=== PATIENT | male | born 1960 | race Two or more races ===

== ENCOUNTER 2018-03-18 08:37 | Inpatient (IN) | payer OTHER ==
[~2018-03-18] VITALS: Ht 162.6 cm; Wt 86.2 kg
[2018-03-18 11:15] VITALS: BP 126/74
--- NOTE | 2018-03-18 11:15 | NUR ---
ms rn admitted a 49 year old patient, awake,alert,oriented x4,came in from [facility] w/ cc of bleeding from rectum x 2days, dx of syncope, denies pain and bleeding at this time, will monitor patient and paged doctor shaye.
[2018-03-18] MEDS ORDERED: TAMS-12 PO (11:39)
[2018-03-18] MEDS ORDERED: OXYB5TAB PO (11:39)
--- NOTE | 2018-03-18 12:19 | NUR ---
ms glazier metal furniture done,no distress noted.
[2018-03-18] MEDS ORDERED: ONDANSETRON HCL/PF 4 MG/2 ML VIAL IVP PRN (13:00)
[2018-03-18] MEDS ORDERED: HYDROCODONE/APAP 5/325MG 1 EACH TABLET PO PRN (13:00)
[2018-03-18] MEDS ORDERED: ZOLPIDEM TARTRATE 5 MG TABLET PO PRN (13:00)
[2018-03-18] MEDS ORDERED: MAGNESIUM HYDROXIDE 30 ML UDC PO PRN (13:00)
[2018-03-18] MEDS ORDERED: MAG HYDROX/AL HYDROX/SIMETH 30 ML UDC PO PRN (13:00)
[2018-03-18] MEDS ORDERED: ACETAMINOPHEN 325 MG TABLET PO PRN (13:00)
[2018-03-18] MEDS ORDERED: Z GUARD REMEDY 2 OZ OINT TP PRN (13:00)
[2018-03-18] MEDS: IV D5/0.45 NACL 1,000 ML IV PRN (13:29)
[2018-03-18] MEDS: PANTOPRAZOLE 40 MG VIAL IV SCH ×2 (13:30→20:57)
[2018-03-18 14:24] LABS: BASOPHILS % (AUTO) 0.5 % (0.0-2.0); EOSINOPHILS % (AUTO) 2.1 % (0.0-6.0); HEMATOCRIT 33 % (39-51); HEMOGLOBIN 11.2 g/dL (13.5-17.5); LYMPHOCYTES # (AUTO) 1.5 /CMM (0.8-4.8); LYMPHOCYTES % (AUTO) 27.3 % (20.0-44.0); MEAN CORPUSCULAR HGB CONC 34 g/dl (31.0-36.0); MEAN CORPUSCULAR VOLUME 90 fL (80-96); MONOCYTES # (AUTO) 0.4 /CMM (0.1-1.30); NEUTROPHILS # (AUTO) 3.5 /CMM (1.8-8.9); NEUTROPHILS % (AUTO) 63.1 % (43.0-81.0); PLATELET COUNT (AUTO) 140 /CMM (150-450); RDW COEFFICIENT OF VARIATION 14.7 (11.5-15.0); RED BLOOD CELL COUNT(AUTO) 3.65 MIL/uL (4.5-6.0); WHITE BLOOD COUNT (AUTO) 5.5 K/uL (4.3-11.0)
[2018-03-18 14:46] LABS: CALCIUM, SERUM 7.7 mg/dL (8.5-10.1); CREATININE 0.8 mg/dL (0.6-1.3); POTASSIUM 3.8 mmol/L (3.5-5.1)
[2018-03-18] MEDS ORDERED: POLYVINYL ALCOHOL 15 ML BOTTLE EACHEYE PRN (15:00)
--- NOTE | 2018-03-18 16:00 | NUR ---
ms rn was seen by dr. shaye gu/ orders made and carried out.
[2018-03-18 17:00] VITALS: BP 118/78
[2018-03-18] MEDS: OXYBUTYNIN CHLORIDE ER 5 MG TAB PO SCH (17:53)
[2018-03-18] MEDS: TAMSULOSIN 0.4 MG CAP.SR.24H PO SCH (17:54)
--- NOTE | 2018-03-18 19:30 | NUR ---
WIRELESS SALES EXPERT OPENING NOTES: PATIENT IN BED, AO, ON ROOM AIR, BREATHING EVEN AND UNLABORED. APPEARS CALM AND IN NO DISTRESS. ON TELE MONITORING: SINUS RHYTHM AT RATE OF 60S. DENIES PAIN. PIV OVER RAC G20 INTACT AND PATENT, INFUSING WELL WITH IVF OF D51/2 NS RUNNING AT 75 ML/HR. PROVIDED FOR COMFORT AND SAFETY. BED IN LOWEST AND LOCKED POSITION, SIDERAILS UP X 2, CALL LIGHT WITHIN REACH. WILL CONT TO MONITOR.
[2018-03-18 20:00] VITALS: BP 123/81
[2018-03-19] VITALS (12 sets, daily range): BP systolic 111–133; BP diastolic 69–84
[2018-03-19] MEDS: IV D5/0.45 NACL 1,000 ML IV PRN (05:35)
--- NOTE | 2018-03-19 06:52 | NUR ---
RUBY ON RAILS WEB DEVELOPER CLOSING NOTES: PATIENT IN BED, AOX4, ON ROOM AIR, BREATHING EVEN AND UNLABORED. ON TELE MONITORING: SINUS RHYTHM RATE OF 70S. PIV OVER RAC G 20 INTACT AND INFUSING WELL WITH D5 1/2 NS RUNNING AT 75 ML /HR. PROVIDED FOR COMFORT AND SAFETY. BED IN LOWEST AND LOCKED POSITION, SIDERAILS UP X 2, CALL LIGHT WITHIN REACH. WILL ENDORSE TO AM RN FOR LINDA.
[2018-03-19 06:57] LABS: BASOPHILS % (AUTO) 0.7 % (0.0-2.0); EOSINOPHILS % (AUTO) 4.5 % (0.0-6.0); HEMATOCRIT 30 % (39-51); HEMOGLOBIN 10.6 g/dL (13.5-17.5); LYMPHOCYTES # (AUTO) 1.4 /CMM (0.8-4.8); LYMPHOCYTES % (AUTO) 33.1 % (20.0-44.0); MEAN CORPUSCULAR HGB CONC 35 g/dl (31.0-36.0); MEAN CORPUSCULAR VOLUME 89 fL (80-96); MONOCYTES # (AUTO) 0.3 /CMM (0.1-1.30); MONOCYTES % (AUTO) 8.1 % (2.0-12.0); NEUTROPHILS # (AUTO) 2.3 /CMM (1.8-8.9); NEUTROPHILS % (AUTO) 53.6 % (43.0-81.0); PLATELET COUNT (AUTO) 127 /CMM (150-450); RDW COEFFICIENT OF VARIATION 14.5 (11.5-15.0); WHITE BLOOD COUNT (AUTO) 4.3 K/uL (4.3-11.0)
--- NOTE | 2018-03-19 07:00 | NUR ---
INSURANCE BUSINESS ANALYST INITIAL NOTES: -Received patient on bed, sleeping but easily arousable. Breathing regular and unlabored. Alert, oriented x 4. Peripheral IV on Right AC with D5 1/2NS infusing at 75mL/hr. No complaints of discomfort as of this time. Bed in low, locked position. Call alvarez within patient's reach. Patient in stable condition as endorsed by the film processing shift supervisor RN.
[2018-03-19 07:14] LABS: CALCIUM, SERUM 7.7 mg/dL (8.5-10.1); CREATININE 0.9 mg/dL (0.6-1.3); MAGNESIUM 1.8 mg/dL (1.8-2.4); PHOSPHORUS 2.7 mg/dL (2.5-4.9); POTASSIUM 3.5 mmol/L (3.5-5.1)
--- NOTE | 2018-03-19 08:00 | NUR ---
JEWEL BEARING TURNER NOTES PATIENT TRANSFERRED TO [facility]. Addendum: 03/19/18 at 1707 by BEATRIZ DOBBINS RN ERROR IN CHARTING FOR DIFFERENT PATIENT.
[2018-03-19] MEDS: PANTOPRAZOLE 40 MG VIAL IV SCH ×2 (08:47→21:08)
[2018-03-19 10:24] LABS: ALBUMIN 2.8 g/dL (3.4-5.0); BILIRUBIN,DIRECT 0.1 mg/dL (0.0-0.2); BILIRUBIN,TOTAL 0.6 mg/dL (0.2-1.0); TOTAL PROTEIN, SERUM 5.6 g/dL (6.4-8.2)
[2018-03-19 10:36] LABS: INR 0.96 (0.87-1.13)
--- NOTE | 2018-03-19 11:30 | NUR ---
MS MONDRAGON NOTES PATIENT S/P JENNISCAN AWAITING FOR RESULTS IF NEGATIVE. PATIENT TO BE DISCHARGED HOME. AWAITING FOR RESULTS. Addendum: 03/19/18 at 1707 by BEATRIZ DOBBINS RN ERROR IN CHARTING FOR DIFFERENT PATIENT.
--- NOTE | 2018-03-19 15:10 | NUR ---
MS RN NOTES PATIENT RETURNED FROM OR S/P EGD IN STABLE CONDITION. PATIENT ALERT, ORIENTED X4. VS WNL. WILL CONTINUE TO MONITOR CLOSELY.
--- NOTE | 2018-03-19 16:20 | NUR ---
MS RN NOTES PATIENT DISCHARGED HOME IN STABLE CONDITION. NO SOB OR ACUTE DISTRESS NOTED. PATIENT ALERT, ORIENTED X3. AWARE OF ALL ABNORMAL FINDINGS. DISCHARGE TEACHING PROVIDED VERBALIZED UNDERSTANDING. PATIENT REQUIRES FURTHER TEACHING ON MEDICATION AND DISEASE PROCESS. PATIENT REFUSES FURTHER TEACHING STATES HE HAS FAMILY WHO ASSIST WITH HIS MEDICATIONS. PATIENT REFUSED DISCHARGE PICTURES STATES THEY JUST TOOKE PICTURES TODAY. ALL BELONGINGS ACCOUNTED FOR , BELONGING LIST SIGNED. PERIPHERAL IV REMOVED WITH MINIMAL BLEEDING. ID BAND ALSO REMOVED. PATIENT ESCORTED TO FRIENDS CAR. Addendum: 03/19/18 at 1709 by BEATRIZ DOBBINS RN ERROR IN CHARTING FOR DIFFERENT PATIENT.
[2018-03-19] MEDS: TAMSULOSIN 0.4 MG CAP.SR.24H PO SCH (17:35)
[2018-03-19] MEDS: OXYBUTYNIN CHLORIDE ER 5 MG TAB PO SCH (17:35)
--- NOTE | 2018-03-19 18:00 | NUR ---
MS RN NOTES: Patient transferred to [facility]. Alert, oriented x 4. Peripheral IV of D5 1/2 NS on R) AC g#20 infusing at 75mL/hr. No complaints of discomfort. Bedside report given to GIANCARLO Mata. Patient in stable condition. Patient curently on NPO awaiting CT abdomen with contrast.
--- NOTE | 2018-03-19 18:05 | NUR ---
RN NOTES PATIENT A/OX4, NO DISTRESS NOTED. BREATHING EVEN AND UNLABORED, DENIES PAIN OR DISCOMFORT. PATIENT NPO AT THIS TIME DUE TO CT ABDOMEN WITH CONTRAST. WILL ENDORSE TO PLASTIC DESIGN APPLIER FOR LINDA.
--- NOTE | 2018-03-19 18:29 | NUR ---
Patient lives locally with spouse/family. He is ambulatory and independent with adl's. Has no DME or homehealth reported. His and family are his primary source of support. Addendum: 03/19/18 at 1829 by SAMMY MORENO RN Amended: Links added.
--- NOTE | 2018-03-19 19:20 | NUR ---
MS RN NOTES RECEIVED PATIENT IN BED, A/OX4, VERBALLY RESPONSIVE. NO DISTRESS NOTED. BREATHING EVEN AND UNLABORED, DENIES PAIN OR DISCOMFORT. FAMILY AT BED SIDE. PATIENT NPO AT THIS TIME FOR CT OF THE ABDOMEN WITH CONTRAST. IV SITE ON RAC LEAKING, INSERTED IV ON RFA WITH 20 G X 1 ATTEMPT, WITH GOOD VENOUS RETURN. IVF INFUSING WELL. DENIES ANY PAIN OR DISCOMFORT AT THIS TIME. ALL NEEDS ATTENDED AND MET. CALL LIGHT WITHIN REACH. WILL CONT TO MONITOR.
--- NOTE | 2018-03-19 19:22 | NUR ---
PT WAS P/U BY RADIOLOGY STAFF FOR CT OF ABDOMEN, PT IN STABLE CONDITION
--- NOTE | 2018-03-19 20:20 | NUR ---
PT CAME BACK FROM CT SCAN ,PT IN STABLE CONDITION. ASSISTED BACK TO BED, SAFELY. DINNER SERVED.
[2018-03-19] MEDS ORDERED: IOHEXOL-300 100 ML VIAL IV ONE (20:25)
[2018-03-20] MEDS: IV D5/0.45 NACL 1,000 ML IV PRN (00:03)
--- NOTE | 2018-03-20 06:53 | NUR ---
MS RN NOTES PATIENT IN BED, A/OX4, RESTING COMFORTABLY AT THIS TIME, VERBALLY RESPONSIVE. NO DISTRESS NOTED. BREATHING EVEN AND UNLABORED, DENIES PAIN OR DISCOMFORT. IV ON RFA INTACT AND PATENT, IVF INFUSING WELL. ALL DUE MEDS GIVEN. DENIES ANY PAIN OR DISCOMFORT AT THIS TIME. ALL NEEDS ATTENDED AND MET. CALL LIGHT WITHIN REACH. WILL ENDORSE TO NEXT SHIFT FOR LINDA.
--- NOTE | 2018-03-20 07:10 | NUR ---
RN INITIAL NOTES: PATIENT RESTING IN BED. NONLABORED BREATHING NOTED ON ROOM AIR. DENYING PAIN AT THE MOMENT. IV SITE ON RIGHT AC PATENT AND INTACT. BED IN LOWEST LOCKED POSITION. CALL LIGHT WITHIN REACH. WILL CONTINUE TO MONITOR
[2018-03-20 07:59] VITALS: BP 129/74
[2018-03-20] MEDS: PANTOPRAZOLE 40 MG VIAL IV SCH (08:19)
[2018-03-20] MEDS ORDERED: PANT40TA2 PO (10:08)
--- NOTE | 2018-03-20 12:55 | NUR ---
PATIENT DISCHARGED HOME PER MD ORDERS. ALL BELONGINGS WITH PATIENT. PRESCRIPTION OF PANTAPROZOLE GIVEN TO PATIENT. DISCUSSED MEDICATION, EXISTCARE INSTRUCTIONS, MD INSTRUCTIONS WITH PATIENT. PROVIDED PATIENT WITH DR CHEO CALVILLO INSTRUCTED TO FOLLOW UP WITH HIM AFTER DISCHARGE. IV LINE REMOVED. NO BLEEDING NOTED DURING SHIFT. NO TARRY STOOL NOTED DURING SHIFT NONLABORED BREATHING NOTED ON ROOM AIR. DENYING PAIN. VS WNL . PATIENT LEFT AMBULATORY WITH VIA PRIVATE CAR. ACCOMPANIED BY STAFF MEMBER TO CAR
== END 2018-03-20 12:57 | disposition home or self-care (01) | DRG 241 ==
LOC: TELE 11:14 → MED 03-19 08:01 → MEDSG2 03-19 17:43
PROVIDERS: ADMIT Internal Medicine; ATTEND Internal Medicine
PROC: 0DB68ZX Excision of Stomach, Via Natural or Artificial Opening Endoscopic, Diagnostic (ICD-10-PCS; principal; 2018-03-19 14:30)
PROC: 0DB58ZX Excision of Esophagus, Via Natural or Artificial Opening Endoscopic, Diagnostic (ICD-10-PCS; principal; 2018-03-19 14:30)
DX: K29.71 Gastritis, unspecified, with bleeding (principal); K20.9 Esophagitis, unspecified; D50.0 Iron deficiency anemia secondary to blood loss (chronic); N40.0 Benign prostatic hyperplasia without lower urinary tract symptoms; K57.90 Diverticulosis of intestine, part unspecified, without perforation or abscess without bleeding
CPT/HCPCS: 36415; 80048-TC; 80076-TC; 83540-TC; 83735-TC; 84100-TC; 85025-TC; 85610-TC; 85730-TC; 87081-TC; 88305-TC; 88313-TC; 88342; C9113; J3490; Q9967; Z7610